=== PATIENT | female | born 1995 | race Two or more races ===

== ENCOUNTER → 2019-02-23 | Outpatient (REF) | payer OTHER | LOC: M SFHCWAGY 15:05 | PROVIDERS: ATTEND Nurse Practitioner Women's Health | DX: Z12.4 Encounter for screening for malignant neoplasm of cervix (principal) ==

== ENCOUNTER → 2019-02-23 | Outpatient (REF) | payer OTHER | LOC: M SFHCWAGY 11:29 | PROVIDERS: ATTEND Nurse Practitioner Women's Health | DX: N76.6 Ulceration of vulva (principal) | CPT/HCPCS: 87255; G0463 ==

== ENCOUNTER → 2019-02-23 | Outpatient (REF) | payer OTHER ==
[2019-02-23 19:15] LABS: CHLAMYDIA DNA AMPLIFICATION NEGATIVE (NEGATIVE); GC DNA AMPLIFICATION NEGATIVE (NEGATIVE)
== END ==
LOC: M SFHCWAGY 16:51
PROVIDERS: ATTEND Nurse Practitioner Women's Health
DX: Z12.4 Encounter for screening for malignant neoplasm of cervix (principal); Z11.3 Encounter for screening for infections with a predominantly sexual mode of transmission
CPT/HCPCS: 87661; G0123

== ENCOUNTER → 2019-03-16 | Outpatient (CLI) | payer OTHER ==
--- NOTE | 2019-03-17 05:54 | REP ---
Clinical: Dysmenorrhea. Technique: Transabdominal pelvic ultrasound followed by transvaginal examination for better evaluation of the endometrium and adnexa with color Doppler evaluation of the ovaries. Findings: Bladder is normal and measures 9.8 x 8.8 x 6.2 cm. Normal anteverted uterus measures 7.3 x 3.4 x 4.3 cm. Endometrial complex measures 3.1 mm thickness. Bilateral ovaries are normal in appearance and vascularity without torsion. Right ovary measures 2.7 x 1.9 x 1.8 cm (RI 0.53). Left ovary measures 2.4 x 1.5 x 1.9 cm (RI 0.58). No pelvic fluid or adnexal mass lesion. Impression: Normal pelvic ultrasound . Electronically Signed by Brent Golden MD 03/17/2019 05:45 A
== END ==
LOC: M RAD 10:17
PROVIDERS: ATTEND Nurse Practitioner Women's Health
DX: N94.10 Unspecified dyspareunia (principal); N94.2 Vaginismus

== ENCOUNTER 2019-05-23 07:54 | Outpatient (RCR) | payer OTHER | END 2019-06-02 | LOC: M PT 07:54 | PROVIDERS: ATTEND Nurse Practitioner Women's Health | DX: N94.819 Vulvodynia, unspecified (principal) ==

== ENCOUNTER 2019-06-27 11:43 | Outpatient (RCR) | payer OTHER | END 2019-07-01 | LOC: M PT 11:43 | PROVIDERS: ATTEND Nurse Practitioner Women's Health | DX: N94.819 Vulvodynia, unspecified (principal) ==

== ENCOUNTER 2019-07-04 11:50 | Outpatient (RCR) | payer OTHER | END 2019-08-01 | LOC: M PT 11:50 | PROVIDERS: ATTEND Nurse Practitioner Women's Health | DX: Z51.89 Encounter for other specified aftercare (principal); N94.819 Vulvodynia, unspecified ==

== ENCOUNTER → 2020-10-30 | Outpatient (REF) | payer OTHER | LOC: M LAB REF 18:24 | PROVIDERS: ATTEND Family Medicine | DX: H66.91 Otitis media, unspecified, right ear (principal) ==

== ENCOUNTER → 2021-02-12 | Outpatient (CLI) | payer OTHER | LOC: M WHC 11:19 | PROVIDERS: ATTEND Advanced Practice Midwife | DX: Z34.02 Encounter for supervision of normal first pregnancy, second trimester (principal); Z53.8 Procedure and treatment not carried out for other reasons ==

== ENCOUNTER → 2021-02-12 | Outpatient (CLI) | payer OTHER ==
[2021-02-12 13:23] LABS: HEMOGLOBIN 12.2 g/dl (12.0-15.5); MEAN CORPUSCULAR HEMOGLOBIN 29.8 pg (27.0-33.0); MEAN CORPUSCULAR HGB CONC 34.9 g/dl (32.0-36.5); MEAN CORPUSCULAR VOLUME 85.6 fl (80.0-96.0); PLATELET COUNT, AUTOMATED 349 10^3/uL (150-450); RED BLOOD COUNT 4.09 10^6/uL (4.00-5.40); WHITE BLOOD COUNT 10.1 10^3/uL (4.0-10.0)
[2021-02-12 14:43] LABS: HEPATITIS C VIRUS ABY INDEX < 0.0 INDEX (<0.8); HIV 1&2 SCREEN CENTAUR NEGATIVE (NEGATIVE)
== END ==
LOC: M PLALAB 11:07
PROVIDERS: ATTEND Advanced Practice Midwife
DX: Z34.02 Encounter for supervision of normal first pregnancy, second trimester (principal); Z3A.00 Weeks of gestation of pregnancy not specified

== ENCOUNTER → 2021-02-12 | Outpatient (REF) | payer OTHER ==
[2021-02-12 16:00] LABS: GC DNA AMPLIFICATION NEGATIVE (NEGATIVE)
== END ==
LOC: M SFHCWAGY 13:15
PROVIDERS: ATTEND Advanced Practice Midwife
DX: Z36.9 Encounter for antenatal screening, unspecified (principal)

== ENCOUNTER → 2021-03-04 | Outpatient (CLI) | payer OTHER ==
--- NOTE | 2021-03-04 14:43 | REP ---
INDICATION: ANATOMY. COMPARISON: None. TECHNIQUE: Real-time sonographic evaluation of the gravid uterus performed. FINDINGS: Estimated gestational age is20 weeks 3 days, EDC 07/19/2021. Today's measurements indicate appropriate growth. Presentation: Transverse Placenta posterior, grade 1, without evidence of placenta previa. heart rate is recorded at 169 beats per minute. Amniotic fluid is subjectively normal. Closed cervical length is measured at 4.0 cm. Biometry chart: BPD: 41 mm, 18 weeks 3 days, less than 5th percentile. HC: 163 mm, 19 weeks 1 days, 10th percentile AC: 140 mm, 19 weeks 3 days, 28th percentile Femur length: 33 mm, 20 weeks 2 days, 48th percentile HC to AC ratio: 1.17, normal range 1.06-1.24. Estimated weight: 309g, 14th percentile. anatomy: Cranium: Grossly normal Lateral Ventricles/Choroid Plexus: Grossly normal Posterior Fossa/Cerebellum: Grossly normal Nose/lips/profile: Grossly normal Four chamber heart: Grossly normal Right ventricular outflow tract: Grossly normal Left ventricular outflow tract: Grossly normal Left-sided stomach: Grossly normal Kidneys: Grossly normal Bladder: Grossly normal Cord Insertion: Grossly normal 3 vessel cord: Grossly normal Spine: Not well seen due to position IMPRESSION: Viable single intrauterine gestation as above. <Electronically signed by Nitin Montemayor > 03/04/21 [id number]
== END ==
LOC: M WHC 09:21
PROVIDERS: ATTEND Advanced Practice Midwife
DX: Z34.02 Encounter for supervision of normal first pregnancy, second trimester (principal)

== ENCOUNTER → 2021-03-12 | Outpatient (CLI) | payer OTHER | LOC: M PLALAB 10:02 | PROVIDERS: ATTEND Advanced Practice Midwife | DX: Z34.82 Encounter for supervision of other normal pregnancy, second trimester (principal); Z3A.00 Weeks of gestation of pregnancy not specified ==

== ENCOUNTER → 2021-03-21 | Outpatient (CLI) | payer OTHER ==
--- NOTE | 2021-03-21 08:36 | REP ---
INDICATION: F/U ANATOMY COMPARISON: 03/04/2021 TECHNIQUE: Transabdominal obstetrical ultrasound with color Doppler evaluation. FINDINGS: Examination demonstrates a single live intrauterine in cephalic presentation. motion is identified by technologist. Placenta is noted posterior and grade 1 without evidence for placenta previa or abruption. Amniotic fluid volume is normal. Cervix measures 4.3 cm in length and appears closed.. Selected gestational age: 22 weeks 6 days with MARY 07/19/2021. Gestational age by current measurements 22 weeks 2 days with MARY 07/23/2021. FHR equals 150 beats per minute. Estimated weight 500 grams (23rdpercentile). Anatomical assessment demonstrates normal structures including spine. IMPRESSION: Single live intrauterine in cephalic presentation demonstrating appropriate interval growth. In conjunction with prior examination anatomical assessment is complete and normal. <Electronically signed by Brent Golden > 03/21/21 [id number]
== END ==
LOC: M WHC 07:01
PROVIDERS: ATTEND Obstetrics & Gynecology
DX: Z36.2 Encounter for other antenatal screening follow-up (principal); O09.32 Supervision of pregnancy with insufficient antenatal care, second trimester; Z3A.22 22 weeks gestation of pregnancy